=== PATIENT | female | born 1965 | race Caucasian/White ===

== ENCOUNTER 2021-05-30 06:22 | Emergency (ER) | payer SELFPAY ==
[~2021-05-30] VITALS: Ht 160 cm; Wt 78.9 kg
[2021-05-30] MEDS ORDERED: LORAZEPAM 1 MG TABLET PO ONE (07:00)
[2021-05-30] MEDS ORDERED: LORAZEPAM 1 MG TABLET ONE (07:12)
--- NOTE | 2021-05-30 07:15 | NUR ---
PATIENT BIBS C/O HIGH BP X1 DAY. "I FEEL LIKE SOMTHING IS WRONG" ALSO STATES BOTH CALVES ARE HAVING PAIN -N/V -HEADACHE. PATIENT IS ALERT AND ORIENTED X4. NO RESPIRATORY DISTRESS NOTED. RESPIRATION EVEN AND UNLABORED. WILL CONTINUE TO MONITOR.
[2021-05-30] MEDS ORDERED: AMLO2.5T4 PO (07:17)
[2021-05-30 08:01] VITALS: BP 150/82
--- NOTE | 2021-05-30 08:01 | NUR ---
Patient discharged to home in stable condition. Written and verbal after care instructions given. Patient verbalizes understanding of instruction.
== END 2021-05-30 08:02 | disposition home or self-care (01) ==
LOC: ER 06:22
DX: I10 Essential (primary) hypertension (principal); Z60.2 Problems related to living alone; Z79.899 Other long term (current) drug therapy

== ENCOUNTER 2021-06-12 14:06 | Emergency (ER) | payer OTHER ==
[~2021-06-12] VITALS: Ht 160 cm; Wt 77.1 kg
[~2021-06-12 14:06] MED LIST: AMLO2.5T4 PO
--- NOTE | 2021-06-12 14:35 | NUR ---
TO ER BED 12, C/O HEADACHE FOR 1WK, AAOX4, BREATHING EVEN AND NON LABORED, ATTACHED TO MONITOR
[2021-06-12] MEDS ORDERED: diphenhydrAMINE HCL 50 MG/ML VIAL ONE (15:20)
[2021-06-12] MEDS ORDERED: METOCLOPRAMIDE HCL 10 MG/2 ML VIAL ONE (15:20)
[2021-06-12] MEDS ORDERED: KETOROLAC TROMETHAMINE 15 MG/ML VIAL ONE (15:20)
[2021-06-12] MEDS ORDERED: METOCLOPRAMIDE HCL 10 MG/2 ML VIAL IV ONE (15:30)
[2021-06-12] MEDS ORDERED: KETOROLAC TROMETHAMINE INJ 30 MG/ML VIAL IV ONE (15:30)
[2021-06-12] MEDS ORDERED: IV NS 0.9% 1,000 ML BAG IV ONE (15:30)
[2021-06-12] MEDS ORDERED: diphenhydrAMINE HCL 50 MG/ML VIAL IV ONE (15:30)
[2021-06-12 15:50] LABS: BASOPHILS % (AUTO) 1.1 % (0.0-2.0); EOSINOPHILS % (AUTO) 1.3 % (0.0-6.0); HEMATOCRIT 38 % (33-45); HEMOGLOBIN 12.8 g/dL (11.5-14.8); LYMPHOCYTES # (AUTO) 1.3 K/uL (0.8-4.8); LYMPHOCYTES % (AUTO) 30.1 % (20.0-44.0); MEAN CORPUSCULAR HGB CONC 33 g/dl (31.0-36.0); MEAN CORPUSCULAR VOLUME 85 fL (82-100); MONOCYTES # (AUTO) 0.3 K/uL (0.1-1.30); NEUTROPHILS # (AUTO) 2.7 K/uL (1.8-8.9); NEUTROPHILS % (AUTO) 60.5 % (43.0-81.0); PLATELET COUNT (AUTO) 197 K/uL (150-450); RED BLOOD CELL COUNT(AUTO) 4.52 MIL/uL (4.0-5.2); WHITE BLOOD COUNT (AUTO) 4.4 K/uL (4.3-11.0)
--- NOTE | 2021-06-12 16:02 | NUR ---
URINE COLLECTED AND SENT TO THE LAB
[2021-06-12 16:13] LABS: BILIRUBIN,URINE NEGATIVE (NEGATIVE); LEUKOCYTE ESTERASE ,URINE NEGATIVE (NEGATIVE); NITRITE, URINE NEGATIVE (NEGATIVE); PROTEIN,URINE NEGATIVE (NEGATIVE); UGLUCOSE NEGATIVE (NEGATIVE); UROBILINOGEN,URINE 0.2 EU/dL (0.2)
[2021-06-12 16:14] LABS: COLOR,URINE YELLOW (YELLOW)
[2021-06-12 17:04] LABS: ALANINE AMINOTRANSFERASE 61 U/L (12-78); ALKALINE PHOSPHATASE 96 U/L (46-116); ASPARTATE AMINOTRANSFERASE 27 U/L (15-37); BILIRUBIN,DIRECT 0.1 mg/dL (0.0-0.2); BILIRUBIN,TOTAL 0.5 mg/dL (0.2-1.0); CARBON DIOXIDE 28 mmol/L (21-32); CHLORIDE 103 mmol/L (98-107); CREATININE 0.7 mg/dL (0.6-1.3); GLUCOSE 129 mg/dL (74-106); POTASSIUM 3.5 mmol/L (3.5-5.1); SODIUM SERUM 140 mmol/L (136-145); TOTAL PROTEIN, SERUM 7.7 g/dL (6.4-8.2); UREA NITROGEN, BLOOD 10 mg/dL (7-18)
[2021-06-12] MEDS ORDERED: IBUP-1955 PO (17:22)
[2021-06-12 17:32] VITALS: BP 125/75
--- NOTE | 2021-06-12 17:32 | NUR ---
IV removed. Catheter intact and site benign. Pressure and 4x4 applied to site. No bleeding noted.Patient discharged to home in stable condition. Written and verbal after care instructions given. Patient verbalizes understanding of instruction.
== END 2021-06-12 17:33 | disposition home or self-care (01) ==
LOC: ER 14:08
DX: R51.9 Headache, unspecified (principal); F41.1 Generalized anxiety disorder; F43.0 Acute stress reaction; Z63.4 Disappearance and death of family member; I10 Essential (primary) hypertension; Z79.899 Other long term (current) drug therapy
CPT/HCPCS: 36415; 70450; 71045; 80048; 80076; 81003; 82962; 84484; 85025; 85730; 93005; 96361; 96374; 96375; 99285; J1200; J1885; J2765; J7030

== ENCOUNTER 2023-08-18 21:28 | Emergency (ER) | payer OTHER ==
[~2023-08-18] VITALS: Ht 157.5 cm; Wt 68.0 kg
[~2023-08-18 21:28] MED LIST changes: +IBUP-1955 PO
[2023-08-18] MEDS ORDERED: TDAP [DIPH/PERTUSSIS/TET] 0.5 ML VIAL IM ONE ×2 (22:23→22:30)
[2023-08-19 00:12] VITALS: BP 143/77; TEMP 98.5; O2SAT 98
== END 2023-08-19 00:13 | disposition home or self-care (01) ==
LOC: ER 21:32
DX: S01.81XA Laceration without foreign body of other part of head, initial encounter (principal); I10 Essential (primary) hypertension; Z79.899 Other long term (current) drug therapy; W22.8XXA Striking against or struck by other objects, initial encounter; Y93.89 Activity, other specified; Y92.89 Other specified places as the place of occurrence of the external cause; Y99.8 Other external cause status
CPT/HCPCS: 90715